=== PATIENT | female | born 1935 | race Caucasian/White ===

== ENCOUNTER 2018-02-28 13:05 | Emergency (ER) | payer MEDICARE, BC ==
[2018-02-28 13:22] VITALS: TEMP 98.8
[2018-02-28 13:33] LABS: HEMATOCRIT 36 % (35-47); HEMOGLOBIN 11.1 gm/dl (12.0-15.5); MEAN CORPUSCULAR HEMOGLOBIN 31.3 pg (27.0-32.0)
[2018-02-28 13:43] LABS: MEAN CORPUSCULAR VOLUME 101 fL (81-99)
[2018-02-28 13:59] LABS: BAND NEUTROPHILS % (MANUAL) 1 %; BASOPHILS % (MANUAL) 0 % (0-3); EOSINOPHILS % (MANUAL) 5 % (0-9); LYMPHOCYTES % (MANUAL) 21 % (10-50); MONOCYTES % (MANUAL) 8 % (0-12); NEUTROPHILS % (MANUAL) 65 % (37-80); NORMAL RBCS PRESENT
[2018-02-28 14:20] LABS: ALBUMIN 2.9 gm/dl (3.4-5.0); BILIRUBIN,TOTAL 0.4 mg/dl (0.2-1.0); CALCIUM 8.4 mg/dl (8.5-10.1); CARBON DIOXIDE 27.2 mEq/L (21-32); CREATININE 0.53 mg/dl (0.60-1.00); POTASSIUM 3.4 mMol/L (3.5-5.1); TOTAL PROTEIN 6.9 gm/dl (6.4-8.2)
[2018-02-28 14:21] VITALS: RESP 22; O2SAT 96
[2018-02-28 18:23] VITALS: BP 160/83; PULSE 56
== END 2018-02-28 14:57 | disposition home or self-care (01) | DRG 605 ==
LOC: ED 13:05
DX: S00.03XA Contusion of scalp, initial encounter (principal); J01.30 Acute sphenoidal sinusitis, unspecified; Z87.891 Personal history of nicotine dependence; I48.91 Unspecified atrial fibrillation
CPT/HCPCS: 36415; 70450; 71045; 80053; 85007; 85027; 85610; 93005; 99284; 99285; G0390